=== PATIENT | male | born 1975 | race Caucasian/White ===

== ENCOUNTER → 2020-07-05 13:00 | Outpatient (CLI) | payer BC, SELFPAY ==
[2020-07-05] MEDS: COVID-19 VACC #1, MRNA(MOD) 100 MCG/0.5 ML VIAL IM (13:05)
== END ==
PROVIDERS: Visit Provider Internal Medicine
DX: Z23 Encounter for immunization (principal)
CPT/HCPCS: 0011A; 91301

== ENCOUNTER → 2020-08-24 11:26 | Outpatient (CLI) | payer BC, SELFPAY ==
[2020-08-24 12:01] LABS: COVID19 -Nasal RAPID Negative (Negative)
== END ==
PROVIDERS: Visit Provider Physician Assistant
DX: Z20.822 Contact with and (suspected) exposure to COVID-19 (principal)
CPT/HCPCS: 87635